=== PATIENT | female | born 1940 | race Caucasian/White ===

== ENCOUNTER 2020-07-02 12:32 | Emergency (ER) | payer OTHER ==
[~2020-07-02] VITALS: Ht 160 cm; Wt 68.5 kg
[2020-07-02 12:42] VITALS: BP 116/68
[2020-07-02] MEDS ORDERED: METHOCARBAMOL 500 MG TAB PO ONE (13:30)
== END 2020-07-02 14:43 | disposition home or self-care (01) ==
LOC: ER 12:32
DX: S16.1XXA Strain of muscle, fascia and tendon at neck level, initial encounter (principal); V49.9XXA Car occupant (driver) (passenger) injured in unspecified traffic accident, initial encounter; Y93.89 Activity, other specified; Y92.89 Other specified places as the place of occurrence of the external cause; Y99.8 Other external cause status
CPT/HCPCS: 72040; 72070; 72100

== ENCOUNTER → 2024-10-18 | Outpatient (CLI) | payer OTHER | END | disposition home or self-care (01) | LOC: LAB 16:43 | PROVIDERS: ATTEND Nurse Practitioner Family | DX: N39.0 Urinary tract infection, site not specified (principal) | CPT/HCPCS: 87086 ==

== ENCOUNTER → 2025-01-30 | Outpatient (CLI) | payer OTHER | END | disposition home or self-care (01) | LOC: LAB 06:15 | PROVIDERS: ATTEND Nurse Practitioner Family | DX: N39.0 Urinary tract infection, site not specified (principal) | CPT/HCPCS: 87086; 87088; 87186 ==

== ENCOUNTER 2025-04-30 13:04 | Outpatient (CLI) | payer OTHER | END 2025-04-30 17:00 | disposition home or self-care (01) | LOC: LAB 13:04 | PROVIDERS: ATTEND Nurse Practitioner Family | DX: N39.0 Urinary tract infection, site not specified (principal) | CPT/HCPCS: 87086 ==

== ENCOUNTER 2025-05-15 09:43 | Outpatient (CLI) | payer OTHER ==
[2025-05-15 10:44] LABS: Hematocrit 37.0 % (36.0-46.0); Hemoglobin 12.4 g/dL (12.2-16.2); Mean Corpuscular Hemoglobin 30.3 pg (28.0-32.0); Mean Corpuscular Volume 90.3 fL (80.0-100.0); Nucleated Red Blood Cells % 0.1 %
[2025-05-15 10:53] LABS: Alanine Aminotransferase 14 U/L (7-40); Anion Gap 9 (5-15); BUN/Creatinine Ratio 23.5 (10.0-20.0); Calcium 9.9 mg/dL (8.7-10.4); Carbon Dioxide 29 mmol/L (20-31); Chloride 105 mmol/L (98-107); Glucose 105 mg/dL (74-106); Potassium 4.1 mmol/L (3.5-5.1); Sodium 143 mmol/L (136-145)
[2025-05-15 10:54] LABS: Total Protein 6.8 g/dL (5.7-8.2)
[2025-05-15 10:55] LABS: Albumin 4.5 g/dL (3.2-4.8); Alkaline Phosphatase 42 U/L (46-116); Blood Urea Nitrogen 28 mg/dL (9-23); Cholesterol 152 mg/dL (< 200); Triglycerides 178 mg/dL (< 150)
[2025-05-15 10:56] LABS: Bilirubin, Total 0.6 mg/dL (0.2-1.0)
[2025-05-15 10:57] LABS: HDL Cholesterol 67 mg/dL (40-59)
== END 2025-05-15 19:35 | disposition home or self-care (01) ==
LOC: LAB 09:43
PROVIDERS: ATTEND Nurse Practitioner Family
DX: I10 Essential (primary) hypertension (principal); Z00.01 Encounter for general adult medical examination with abnormal findings
CPT/HCPCS: 36415; 80053; 80061; 84443; 85025